=== PATIENT | male | born 1940 | race Hispanic/Latino ===

== ENCOUNTER 2021-04-04 08:02 | Day surgery (SDC) | payer OTHER ==
[~2021-04-04] VITALS: Ht 167.6 cm; Wt 70.1 kg
[2021-04-04] VITALS (8 sets, daily range): BP systolic 94–171; BP diastolic 38–81
[~2021-04-04 08:02] MED LIST: AEC81 PO; AMLO-257 PO; PANT40TA54 PO; SODIUM CHLORIDE 0.9% 1000ML 1,000 ML IV ONE
[2021-04-04] MEDS ORDERED: PROPOFOL 10 MG/ML 20ML VIAL IV ONE (09:26)
== END 2021-04-04 10:38 | disposition home or self-care (01) ==
LOC: ENDO 08:02 → DAH 08:02 → ENDO 10:38
PROVIDERS: ATTEND Internal Medicine Gastroenterology
DX: K31.89 Other diseases of stomach and duodenum (principal); Z20.822 Contact with and (suspected) exposure to COVID-19; K29.30 Chronic superficial gastritis without bleeding; I10 Essential (primary) hypertension; E78.5 Hyperlipidemia, unspecified; Z79.82 Long term (current) use of aspirin; Z98.890 Other specified postprocedural states; Z79.899 Other long term (current) drug therapy
CPT/HCPCS: 43237; 43239; 87635; 93005; A4215 ×2; A4221; A4222; A4223; A4606; A4620; A4657; A4663; C9803; J2704; J7030